=== PATIENT | female | born 1940 | race Caucasian/White ===

== ENCOUNTER 2018-09-06 17:55 | Inpatient (IN) | payer OTHER ==
[~2018-09-06] VITALS: Ht 160 cm; Wt 79.4 kg
[2018-09-06 18:00] VITALS: BP 179/127
--- NOTE | 2018-09-06 18:00 | NUR ---
PATIENT BIB BLS TO ER BED 4.
--- NOTE | 2018-09-06 18:03 | NUR ---
CALLED ROBERT FRANKLIN FOR ASSISTANCE ON THE IDENTITY OF THE PATIENT. DISPATCHER STATED OFFICER WILL CALL BACK.
--- NOTE | 2018-09-06 18:05 | NUR ---
PT BIB EMS FROM HOME FOR ALOC. PER EMS PT'S MARRIAGE THERAPIST WAS DOA AND WAS FOUND SITTING IN URINE APPROX >24 HOURS. LAST KNOWN WELL PER NEIGHBOR WAS 12PM YESTERDAY. PT HAS AUDIBLE WHEEZING AND RALES. SPEAKING INCOHERENTLY. +COUGH. PATIENT POSITIONED FOR COMFORT; HOB ELEVATED; BEDRAILS UP X2; BED DOWN. ER MD MADE AWARE OF PT STATUS.
--- NOTE | 2018-09-06 18:07 | NUR ---
OFFICER CATHLEEN CALLED BACK WITH NO AVAILABLE IDENTITY OF PATIENT AT THIS TIME. OFFICER WILL CALL BACK FOR ANY INFORMATION.
[2018-09-06 18:33] LABS: BASOPHILS % (AUTO) 0.1 % (0.0-2.0); HEMATOCRIT 42.3 % (36-48); HEMOGLOBIN 13.9 g/dL (12.0-16.0); LYMPHOCYTES # (AUTO) 0.6 K/uL (2.5-16.5); MEAN CORPUSCULAR HEMOGLOBIN 29 pg (27-31); MEAN CORPUSCULAR HGB CONC 33 g/dL (33-37); MEAN CORPUSCULAR VOLUME 88.9 fL (80-94); MONOCYTES # (AUTO) 1.7 K/uL (0.8-1.0); MONOCYTES % (AUTO) 8.2 % (1.7-9.3); NEUTROPHILS # (AUTO) 18.3 K/uL (1.8-7.7); NEUTROPHILS % (AUTO) 88.7 % (42.2-75.2); PLATELET COUNT (AUTO) 360 K/uL (140-450); RED BLOOD CELL COUNT(AUTO) 4.76 MIL/uL (4.20-5.40); RED CELL DISTRIBUTION WIDTH 14.2 % (11.6-13.7); WHITE BLOOD COUNT (AUTO) 20.6 K/uL (4.8-10.8)
--- NOTE | 2018-09-06 18:45 | NUR ---
OFFICER CATHLEEN CALLED FOR THE ID OF PATIENT. KAI JACKSON. [id number].
--- NOTE | 2018-09-06 18:55 | NUR ---
SPOKE TO JONATHAN #[id number] FROM [facility]. INTAKE REPORT # [id number].
--- NOTE | 2018-09-06 18:55 | NUR ---
OFFICER DESTIN CONNOLLY FROM [facility]. REPORT #[phone]
--- NOTE | 2018-09-06 19:04 | NUR ---
ASSUMED CARE OF PT FROM ELA HOLLOWAY
[2018-09-06 19:05] LABS: ANION GAP 23.9 (8-16); CHLORIDE 98 mmol/L (98-107); GLUCOSE 128 mg/dL (74-106); POTASSIUM 3.9 mmol/L (3.5-5.1); SODIUM SERUM 141 mmol/L (136-145)
[2018-09-06 19:06] LABS: ALBUMIN 3.7 g/dL (3.4-5.0); ASPARTATE AMINOTRANSFERASE 146 U/L (15-37); TOTAL BILIRUBIN 1.7 mg/dL (0.0-1.0)
[2018-09-06 19:11] LABS: CREATININE 4.1 mg/dL (0.6-1.3); UREA NITROGEN, BLOOD 73 mg/dL (7-18)
[2018-09-06] MEDS ORDERED: NACL 0.9% 2,000 ML IV ONE (19:20)
[2018-09-06] MEDS ORDERED: PIPERACILLIN/TAZOBACTAM 3.375 GM in DEXTROSE 5% 50 ML IV ONE (19:20)
[2018-09-06] MEDS ORDERED: PIPERACILLIN/TAZOBACTAM 3.375 GM VIAL IV ONE (19:35)
[2018-09-06 19:39] LABS: APPEARANCE,URINE SL CLOUDY (CLEAR); BILIRUBIN,URINE 2+ (NEGATIVE); BLOOD, URINE 2+ (NEGATIVE); COLOR,URINE YELLOW (YELLOW); LEUKOCYTE ESTERASE ,URINE NEGATIVE (NEGATIVE); NITRITE, URINE NEGATIVE (NEGATIVE); UGLUCOSE NEGATIVE (NEGATIVE)
[2018-09-06 19:51] LABS: CKMB RELATIVE INDEX 2.8 (0.0-2.5); CREATINE KINASE MB 97.9 ng/mL (0-3.6)
[2018-09-06 19:55] LABS: RBC,URINE 11-20 (MOD) /HPF (0-5)
[2018-09-06] MEDS ORDERED: ALBUTEROL SULFATE/IPRATROPIU 3 ML SOL IH ONE ×2 (20:15→20:55)
[2018-09-06] MEDS ORDERED: LEVOFLOXACIN 500 MG/D5W PREMIX 100 ML IV ONE (20:20)
[2018-09-06] MEDS ORDERED: NACL 0.9% 500 ML IV ONE (20:20)
[2018-09-06] MEDS ORDERED: DOCUSATE SODIUM 100 MG GELCAP PO PRN (20:50)
[2018-09-06] MEDS ORDERED: MORPHINE SULFATE 2 MG/ML SYR IVP PRN (20:50)
[2018-09-06] MEDS ORDERED: LORazepam 2 MG/ML VIAL IM/IVP PRN (20:50)
[2018-09-06] MEDS ORDERED: HYDROcodone/APAP 5/325 MG 1 TAB TAB PO PRN (20:50)
[2018-09-06] MEDS ORDERED: ONDANSETRON 4 MG/2 ML VIAL IM/IVP PRN (20:50)
[2018-09-06] MEDS ORDERED: ACETAMINOPHEN 325 MG TAB PO PRN (20:50)
--- NOTE | 2018-09-06 20:50 | NUR ---
PT RESTING, VSS AT THIS TIME. RT CALLED FOR BREATHING TREATMENT.
--- NOTE | 2018-09-06 20:57 | NUR ---
RT AT BEDSIDE
[2018-09-06 21:21] LABS: BARBITURATE, URINE NEG. ng/ml (NEG <=200); BENZODIAZEPINE, URINE NEG. ng/mL (NEG <=200); CANNABINOID, URINE NEG. ng/mL (NEG <=50); COCAINE, URINE NEG. ng/mL (NEG <=300); OPIATE, URINE NEG. ng/mL (NEG <=2000); PHENCYCLIDINE SCREEN,URINE NEG. ng/mL (NEG <=25)
[2018-09-06 21:25] LABS: MAGNESIUM 2.7 mg/dL (1.8-2.4); PHOSPHORUS 8.2 mg/dL (2.5-4.9); THYROID STIMULATING HORMONE 1.7 uIU/mL (0.34-3.74)
--- NOTE | 2018-09-06 22:00 | NUR ---
Patient noted to have existing wounds upon arrival to ER. Photos taken of wound and placed in chart. Wound covered with dressing. Physician informed.
[2018-09-06 22:19] VITALS: BP 130/70
--- NOTE | 2018-09-06 22:20 | NUR ---
RECEIVED REPORT FROM GATEKEEPER RENU. PT ON NC 3L. O2 SAT 94% HR 77 B/P 130/70 RR 22. LUNG SOUNDS WHEEZING. RT NOTIFIED. PT HAS REDNESS ON BUTTOCKS, BLISTERS ON MID BACK, AND A SKIN TEAR ON BACK. PT WITH MX BRUISE ON ARMS. PT WITH CASTELLANOS CATH PLACED IN ER. PT NONVERBAL. OPEN ONLY R EYE. IV ON RAC 20 G NS BOLUS INFUSING. PT EDEMA ON BILATERAL LEGS. ALL SAFETY MEASURES ARE IN PLACE. FALL PRECAUTION IN PLACE.
--- NOTE | 2018-09-06 22:20 | NUR ---
Patient will be admitted to care of DR AMEZQUITA. Admited to TELE. Will go to room 112-A. Belongings list completed. Report to ELA GOMEZ.
--- NOTE | 2018-09-06 22:40 | NUR ---
RT IS AT BEDSIDE. WILL CONTINUE TO MONITOR.
[2018-09-06] MEDS ORDERED: CALCIUM ACETATE 667 MG TAB PO SCH (23:00)
[2018-09-06] MEDS ORDERED: ALBUTEROL SULFATE/IPRATROPIU 3 ML SOL IH PRN (23:10)
[2018-09-06] MEDS ORDERED: SKINTEGRITY HYDROGEL TP PRN (23:25)
[2018-09-06] MEDS: DEXT 5% / NACL 0.45% 1,000 ML IV SCH (23:28)
[2018-09-07] VITALS: BP 131/54
[2018-09-07] MEDS ORDERED: methylPREDNISolone SS 125 MG/2 ML VIAL IVP ONE
--- NOTE | 2018-09-07 | NUR ---
PT STABLE O2 SAT 97% ON 4L NC. B/P 131/54 HR 66. PT REMAINS NONVERBAL. BED ALARM ON. WILL CONTINUE TO MONITOR
--- NOTE | 2018-09-07 | NUR ---
PT REPOSITIONED, NEW ORDERS FOR FLUIDS D5 AND N/S AT 100MLS/HR. NO S/S OF PAIN OR DISTRESS NOTED. V/S FOLLOWS T 97.6 P 74 R 18 B/P 153/54 02 96%WITH 3LITERS VIA N/C.
--- NOTE | 2018-09-07 02:00 | NUR ---
PT IS SLEEPING COMFORTABLY IN BED. NO S/S OF DISTRESS. SAFETY MEASURES ARE IN PLACE. WILL CONTINUE TO MONITOR.
--- NOTE | 2018-09-07 04:00 | NUR ---
VITAL SIGNS ARE WITHIN NORMAL LIMITS. ALL NEEDS MET AT THIS TIME. BED ALARM ON AND LOWEST POSITION.
[2018-09-07 04:02] VITALS: BP 131/55
[2018-09-07] MEDS: methylPREDNISolone SS 125 MG/2 ML VIAL IVP SCH ×3 (04:18→22:21)
--- NOTE | 2018-09-07 06:00 | NUR ---
PT SLEEPING COMFORTABLY IN BED. RESPIRATIONS ARE EQUAL AND UNLABORED. SAFETY MEASURES ARE IN PLACE. WILL CONTINUE TO MONITOR.
--- NOTE | 2018-09-07 06:32 | NUR ---
PATIENT HAS BEEN SCREENED AND CATEGORIZED HIGH NUTRITION RISK. PATIENT WILL BE SEEN WITHIN 1-2 DAYS OF ADMISSION. 09/07/18-09/08/18 XIMENA COLON MS, RDN
[2018-09-07 06:51] LABS: BASOPHILS % (AUTO) 0.1 % (0.0-2.0); HEMATOCRIT 32.1 % (36-48); HEMOGLOBIN 10.4 g/dL (12.0-16.0); LYMPHOCYTES # (AUTO) 0.3 K/uL (2.5-16.5); MEAN CORPUSCULAR HEMOGLOBIN 29 pg (27-31); MEAN CORPUSCULAR HGB CONC 32 g/dL (33-37); MEAN CORPUSCULAR VOLUME 88.1 fL (80-94); MONOCYTES # (AUTO) 0.4 K/uL (0.8-1.0); MONOCYTES % (AUTO) 3.4 % (1.7-9.3); NEUTROPHILS # (AUTO) 12.1 K/uL (1.8-7.7); PLATELET COUNT (AUTO) 238 K/uL (140-450); RED BLOOD CELL COUNT(AUTO) 3.65 MIL/uL (4.20-5.40); RED CELL DISTRIBUTION WIDTH 14.2 % (11.6-13.7); WHITE BLOOD COUNT (AUTO) 12.9 K/uL (4.8-10.8)
[2018-09-07] MEDS: ALBUTEROL SULFATE/IPRATROPIU 3 ML SOL IH SCH ×3 (07:00→19:00)
[2018-09-07 07:15] LABS: ANION GAP 18.4 (8-16); CARBON DIOXIDE 20.1 mmol/L (21-32); CHLORIDE 105 mmol/L (98-107); CREATININE 3.6 mg/dL (0.6-1.3); GLUCOSE 239 mg/dL (74-106); POTASSIUM 3.5 mmol/L (3.5-5.1); SODIUM SERUM 140 mmol/L (136-145)
[2018-09-07 07:17] LABS: UREA NITROGEN, BLOOD 76 mg/dL (7-18)
--- NOTE | 2018-09-07 07:22 | NUR ---
GAVE BEDSIDE REPORT TO BUSTER MAHMOOD. PT ENDORSED IN STABLE CONDITION. SAFETY MEASURES ARE IN PLACE.
--- NOTE | 2018-09-07 07:23 | NUR ---
RECEIVED REPORT FROM LIQUID SUGAR MELTER NURSE. PATIENT LYING DOWN IN BED SLEEPING, AROUSABLE TO TOUCH, LOCALIZED PAIN. AAOX1, DROWSY AT THIS TIME. HAS BACK SKIN BLISTERS, SKIN TEARS AND PERINEAL REDNESS NOTED. RESPIRATIONS EVEN, UNLABORED, ON O2 4L/MIN VIA NC WITH O2 SAT AT 97%, ABDOMEN SOFT. IV SITE INTACT, PATENT, AND INFUSING IVF PER MD ORDERS. REVIEWED PLAN OF CARE WITH PATIENT. PATIENT VERBALIZED UNDERSTANDING. SAFETY MEASURES IN PLACE, CALL LIGHT WITHIN REACH. WILL CONTINUE TO MONITOR.
[2018-09-07] MEDS ORDERED: ALBUTEROL SULFATE/IPRATROPIU 3 ML SOL IH PRN (07:25)
[2018-09-07 07:35] LABS: CHOL/HDL RATIO 2.3 (1-4.5)
[2018-09-07 07:36] LABS: MAGNESIUM 2.1 mg/dL (1.8-2.4); PHOSPHORUS 6.4 mg/dL (2.5-4.9)
[2018-09-07 08:00] VITALS: BP 113/87
[2018-09-07] MEDS: CALCIUM ACETATE 667 MG TAB PO SCH (08:00)
[2018-09-07 08:18] LABS: LYMPHOCYTES % (AUTO) 2.7 % (20.5-51.1); NEUTROPHILS % (AUTO) 93.8 % (42.2-75.2)
[2018-09-07] MEDS ORDERED: FUROSEMIDE 40 MG/4 ML VIAL IVP SCH (08:30)
[2018-09-07] MEDS ORDERED: levETIRAcetam 1,000 MG in NACL 0.9% 100 ML IV SCH (09:00)
[2018-09-07] MEDS: DEXT 5% / NACL 0.45% 1,000 ML IV SCH ×2 (09:02→19:02)
--- NOTE | 2018-09-07 09:09 | NUR ---
PATIENT LYING DOWN IN BED SLEEPING, AROUSABLE BY VOICE AND TOUCH. CONFUSED. SCHEDULED MEDICATIONS DUE GIVEN. NO NGTUBE INSERTED AT THIS TIME PER DR. LYNNE VERBAL ORDERS FOR OK TO HOLD OFF FOR NOW DUE TO PATIENT AROUSABLE AND ABLE TO RESPOND TO QUESTIONS, HOWEVER, IS DROWSY. PATIENT MAY GET AGITATED AND PULL OUT NGTUBE ONCE PLACED IN AND PATIENT CURRENTLY ONLY HAS 1 ORAL MEDICATION AT THIS TIME. WILL CONTINUE TO MONITOR.
--- NOTE | 2018-09-07 09:46 | NUR ---
09/07/18 RD INITIAL ASSESSMENT COMPLETED PLEASE REFER TO NUTRITION ASSESSMENT UNDER CARE ACTIVITY FOR ESTIMATED NUTRITIONAL NEEDS. RD RECOMMENDATIONS: 1. CONTINUE NPO MEDICALLY APPROPRIATE. 2. IF/WHEN MEDICALLY APPROPRIATE, CONSIDER SWALLOW EVALUATION. 3. IF/WHEN MEDICALLY APPROPRORIATE & PT ABLE TO TOLERATE ORAL DIET, CONSIDER INITIATING REGULAR DIET IN DIET TEXTURES PER LOAN INTERVIEWER RECOMMENDATIONS. 4. IF PT UNABLE TO TOLERATE PO DIET, CONSIDER ALTERNATE ROUTE OF NUTRITION. CONSULT RDN PRN. 5. RD WILL F/U 2-3 DAYS; HIGH RISK. XIMENA COLON MS, RDN
[2018-09-07] MEDS: SKINTEGRITY HYDROGEL TP SCH (11:02)
--- NOTE | 2018-09-07 11:02 | NUR ---
PATIENT LYING DOWN IN BED. NO DISTRESS NOTED. DROWSY. SCHEDULED MEDICATIONS DUE GIVEN. RADIOLOGIST AT BEDSIDE TO PERFORM CHEST XRAY. WILL CONTINUE TO MONITOR.
[2018-09-07] MEDS ORDERED: LORazepam 2 MG/ML VIAL IM/IVP PRN (11:25)
[2018-09-07 12:00] VITALS: BP 109/55
[2018-09-07] MEDS ORDERED: ALBUTEROL SULFATE/IPRATROPIU 3 ML SOL IH SCH (12:00)
--- NOTE | 2018-09-07 12:54 | NUR ---
PATIENT LYING DOWN IN BED, LETHARGIC. RESPONDS TO PAIN STIMULATION. SCHEDULED MEDICATION DUE GIVEN. ABG TAKEN BY RT AT BEDSIDE. WILL CONTINUE TO MONITOR.
--- NOTE | 2018-09-07 13:10 | NUR ---
SPOKE TO DR. LYNNE AND REGARDING ABG RESULTS
--- NOTE | 2018-09-07 14:30 | NUR ---
ASSISTED COMMERCIAL PRINT SALESMAN IN CLEANING AND REPOSITIONING PATIENT. WILL CONTINUE TO MONITOR.
[2018-09-07 16:00] VITALS: BP 97/57
--- NOTE | 2018-09-07 17:30 | NUR ---
PATIENT LYING DOWN IN BED SLEEPING. CONDITION UNCHANGED. WILL CONTINUE TO MONITOR.
--- NOTE | 2018-09-07 19:29 | NUR ---
REPORT GIVEN BY BUSTER MAHMOOD REPAIRER ENGINE PRODUCTION NURSE, AT BEDSIDE FOR CONTINUITY OF CARE, PT IN STABLE CONDITION.
--- NOTE | 2018-09-07 19:29 | NUR ---
GAVE REPORT TO COREMAKER APPRENTICE NURSE FOR CONTINUITY OF CARE. PATIENT IN STABLE CONDITION
--- NOTE | 2018-09-07 20:00 | NUR ---
PT IN BED ALL FALLS PRECAUTIONS IN PLACE. PT AOX1, SHE WILL OPEN EYES SPONTANEOUSLY , KNOWS WHO SHE IS BUT IS CONFUSED. PT HAS O2 VIA 3LITERS N/C AND IV SITE ON R AC 20 RUNNING D5 AND 1/2 NS.V/S FOLLOWS T 97.9 P 64 R 18 B/P 122/60 02 94% .PT TURNED AND CHANGED AND REPOSITIONED.
--- NOTE | 2018-09-07 21:00 | NUR ---
PT GIVEN DUE MEDS OF KEPPRA, HEPARIN AND SOLUMEDROL. NO S/S OF PAIN OR DISTRESS. PT NOTED WITH INTERMITTED COUGH THATS, NON PRODUCTIVE. PT LUNG SOUNDS CLEAR BUT SLIGHTLY DIMINISHED WITH EXPIRATION. NO S/S OF PAIN OR DISTRESS NOTED. PT AWAKE AND REORIENTED.
[2018-09-07] MEDS: levETIRAcetam 500 MG in NACL 0.9% 100 ML IV SCH (22:26)
[2018-09-07] MEDS ORDERED: MULT-1869 PO (22:39)
[2018-09-07] MEDS ORDERED: PANT40EC PO (22:40)
[2018-09-07] MEDS ORDERED: POTA10TE30 PO (22:40)
[2018-09-07] MEDS ORDERED: VITD1000 PO (22:40)
[2018-09-07] MEDS ORDERED: DOCU-299 PO (22:40)
[2018-09-07] MEDS: DEXT 5% /NACL 0.9% 1,000 ML IV SCH (22:50)
[2018-09-07] MEDS ORDERED: DOCUSATE SODIUM 100 MG GELCAP PO PRN (22:50)
[2018-09-08 03:05] VITALS: BP 117/41
--- NOTE | 2018-09-08 04:00 | NUR ---
PT TURNED , CHANGED AND REPOSITIONED. BED LOW, CALL DIAL IN REACH AND ALL FALLS PRECAUTIONS IN PLACE. V/S FOLLOWS T 97.9 P 62 R 18 B/P 147/57 02 97% WITH 3 LITERS VIA N/C.
--- NOTE | 2018-09-08 04:30 | NUR ---
PATIENT SLEEPING. NO RESPIRATORY DISTRESS NOTED. TITRATED OXYGEN TO 2L. PULSE OX 96%. HEART RATE 63. WILL CONTINUE TO MONITOR.
[2018-09-08] MEDS: methylPREDNISolone SS 40 MG/ML VIAL IVP SCH ×3 (05:00→21:42)
[2018-09-08] MEDS: ALBUTEROL SULFATE/IPRATROPIU 3 ML SOL IH SCH ×3 (06:51→18:58)
[2018-09-08 07:08] LABS: BASOPHILS % (AUTO) 0.1 % (0.0-2.0); HEMATOCRIT 34.3 % (36-48); LYMPHOCYTES # (AUTO) 0.5 K/uL (2.5-16.5); LYMPHOCYTES % (AUTO) 3.7 % (20.5-51.1); MEAN CORPUSCULAR HEMOGLOBIN 28 pg (27-31); MEAN CORPUSCULAR HGB CONC 32 g/dL (33-37); MEAN CORPUSCULAR VOLUME 87.9 fL (80-94); MONOCYTES # (AUTO) 0.5 K/uL (0.8-1.0); MONOCYTES % (AUTO) 4.1 % (1.7-9.3); NEUTROPHILS # (AUTO) 11.5 K/uL (1.8-7.7); NEUTROPHILS % (AUTO) 92.1 % (42.2-75.2); PLATELET COUNT (AUTO) 257 K/uL (140-450); RED CELL DISTRIBUTION WIDTH 14.5 % (11.6-13.7); WHITE BLOOD COUNT (AUTO) 12.5 K/uL (4.8-10.8)
[2018-09-08 07:20] LABS: ANION GAP 17.9 (8-16); CARBON DIOXIDE 20.8 mmol/L (21-32); CHLORIDE 109 mmol/L (98-107); CREATININE 3.3 mg/dL (0.6-1.3); GLUCOSE 177 mg/dL (74-106); POTASSIUM 3.7 mmol/L (3.5-5.1); SODIUM SERUM 144 mmol/L (136-145)
[2018-09-08 07:23] LABS: MAGNESIUM 2.4 mg/dL (1.8-2.4); PHOSPHORUS 5.6 mg/dL (2.5-4.9)
--- NOTE | 2018-09-08 07:25 | NUR ---
RECEIVED REPORT FROM HEALTH INFORMATICS INSTRUCTOR NURSE. PATIENT LYING DOWN IN BED COMFORTABLY, NO DISTRESS NOTED. RESPIRATIONS EVEN, UNLABORED, ON O2 3L/MIN VIA NC. AAOX1, CALM, COOPERATIVE, SKIN COLOR APPROPRIATE TO ETHNICITY, WARM TO TOUCH. HAS BACK SKIN TEARS, DRESSING IS DRY AND INTACT. CASTELLANOS CATHETER IN PLACE, DRAINING YELLOW URINE. REVIEWED PLAN OF CARE WITH PATIENT. PATIENT VERBALIZED UNDERSTANDING. SAFETY MEASURES IN PLACE, CALL LIGHT WITHIN REACH. WILL CONTINUE TO MONITOR.
[2018-09-08 07:30] LABS: UREA NITROGEN, BLOOD 75 mg/dL (7-18)
[2018-09-08 08:00] VITALS: BP 148/68
[2018-09-08] MEDS: CALCIUM ACETATE 667 MG TAB PO SCH (08:00)
[2018-09-08 08:28] LABS: CKMB RELATIVE INDEX 0.7 (0.0-2.5); CREATINE KINASE MB 24.6 ng/mL (0-3.6)
[2018-09-08] MEDS ORDERED: POTASSIUM CHLORIDE 10 MEQ TABER PO SCH (09:00)
[2018-09-08] MEDS ORDERED: MULTIVITAMIN/MINERALS 1 TAB PO SCH (09:00)
[2018-09-08] MEDS ORDERED: DOCUSATE SODIUM 100 MG GELCAP PO SCH (09:00)
[2018-09-08] MEDS ORDERED: PANTOPRAZOLE 40 MG TABEC PO SCH (09:00)
[2018-09-08] MEDS ORDERED: CHOLECALCIFEROL 1,000 IU TAB PO SCH (09:00)
[2018-09-08] MEDS: SKINTEGRITY HYDROGEL TP SCH (10:07)
[2018-09-08] MEDS: DEXT 5% /NACL 0.9% 1,000 ML IV SCH ×2 (10:08→19:01)
[2018-09-08] MEDS: levETIRAcetam 500 MG in NACL 0.9% 100 ML IV SCH ×2 (10:08→21:42)
--- NOTE | 2018-09-08 10:30 | NUR ---
ASSISTED GEOLOGICAL ENGINEERING TEACHER IN CLEANING AND REPOSITIONING PATIENT. SCHEDULED MEDICATIONS DUE GIVEN. PO MEDICATION NOT GIVEN AT THIS TIME AWAITING FOR ST EVAL PER MD ORDERS. WILL CONTINUE TO MONITOR.
--- NOTE | 2018-09-08 11:15 | NUR ---
COOK FRY AT BEDSIDE TO PERFORM EEG. WILL CONTINUE TO MONITOR.
--- NOTE | 2018-09-08 11:30 | NUR ---
PATIENT'S BROTHER CALLED REGARDING STATUS ON PATIENT. CONTACT NUMBER FOR PATIENT IS VIKASH RAMOS (BROTHER) [phone], AND BUSTER RAMOS (BROTHER) [phone]. NOTIFIED WILL CONTINUE TO MONITOR.
--- NOTE | 2018-09-08 11:48 | NUR ---
WOUND CARE EVALUATION NOTE: REASON FOR EVALUATION: LOW IVAN SCALE AND MID BACK WOUNDS SKIN ASSESSMENT DONE WITH THIS 78 Y/O FEMALE PT ADMITTED FROM HOME TO [facility] WITH INITIAL DX ALOC. PT. ADMITTED WITH MULTIPLE BLISTERS AND ONE OPEN BLISTERS TO MID BACK AREA. PT. IS CONFUSED AT TIME OF SKIN ASSESSMENT, UNABLE TO RECALL WHAT HAPPENED TO THE BLISTERS AND WHY SHE IS AT HOSPITAL, UNABLE TO ANSWER IF THERE�S ANY PAST MEDICAL HISTORY. LABS ARE WBC 8.812.5, H/H 11.0/34.3, GLUCOSE 117 AND ALBUMIN 3.7. PT IS AWAKE. SKIN IS WARM AND DRY, BLE NO HAIR GROWTH, NO EDEMA. DORSAL PEDAL PULSES PRESENT AND NORMAL. CAPILLARY REFILLED < 2 SEC. X 10 TOES. INCONTINENT OF BOWEL AND BLADDER. PLAN OF CARE DISCUSSED WITH PRIMARY RN. INTEGUMENTARY: -MULTIPLE ECCHYMOSIS TO UPPER EXTREMITIES, SKIN INTACT. -PRESSURE INJURIES POSTERIOR THORACIC SPINAL REGION OPEN BLISTERS MID BACK 2X3X0.1 CM AND LEFT MID BACK 2X1X0.1CM, WOUND BEDS ARE RED, MOIST, NO ODOR, 2 WOUNDS ERIKA-WOUND SKIN INTACT SURROUNDING REDNESS MERGED WITH 4X6CM -INCONTINENT ASSOCIATE DERMATITIS (IAD) TO: REDNESS B/L INNER BUTTOCKS EXTENDED TO PERINEUM WITH A SKIN EROSION TO RIGHT INNER BUTTOCK 1X0.5X0.1 CM, WOUND BED IS RED AND DRY, NO ODOR -BLANCHABLE REDNESS TO SACROCOCCYX, 2X2CM RECOMMENDATIONS: -KEEP SKIN DRY AND CLEAN AT ALL TIMES, PLEASE CHECK Q2H AND PRN FOR INCONTINENCY OF BOWEL AND BLADDER. -APPLY Z-GUARD TO R/L INNER BUTTOCKS TO PERINEUM BIDWC AND PRN IF SOILING - CLEANSE THORACIC SPINAL REGION OPEN BLISTERS WITH WOUND CLEANSING SOLUTION, PAT DRY AND APPLY HYDRAGEL AND COVER WITH DRY DRESSING QD AND PRN IF SOILING -APPLY FORM DRESSING TO SACROCOCCY Q7 DAYS AND PRN IF SOILING PREVENTION -OFFLOAD BILATERAL HEELS BY PLACING PILLOWS UNDER CALVES UNLESS OTHERWISE CONTRAINDICATED -PRESSURE REDISTRIBUTION SURFACE THERAPY -TURN AND REPOSITION Q2H, OFFLOAD MID BACK, SACRALCOCCYX AND BUTTOCKS BY TURNING RIGHT AND LEFT -CONTINUE TO FOLLOW RD RECOMMENDATIONS ALL ABOVE RECOMMENDATIONS DISCUSSED WITH PRIMARY RN. WILL FOLLOW UP PT Q7-10 DAYS. PLEASE CONTACT WOUND CARE NURSE FOR ANY QUESTION AND CHANGE OF WOUND CONDITION. Addendum: 09/08/18 at 1227 by Margy Argueta RN (Grace) PRESSURE INJURIES STAGE 2 TO THORACIC SPINAL REGION.
[2018-09-08 12:00] VITALS: BP 150/71
--- NOTE | 2018-09-08 13:25 | NUR ---
PATIENT LYING DOWN IN BED SLEEPING, AROUSABLE BY VOICE. NO DISTRESS NOTED. CONDITION UNCHANGED. SCHEDULED MEDICATIONS DUE GIVEN. WILL CONTINUE TO MONITOR.
--- NOTE | 2018-09-08 15:10 | NUR ---
PATIENT REFUSES ECHOCARDIOGRAM DONE AT THIS TIME DESPITE EXPLAINING PROCEDURE TO PATIENT. ECHOCARDIOGRAM TECH TO NOTIFY MD OF PATIENT'S REFUSAL.
[2018-09-08 16:00] VITALS: BP 169/73
--- NOTE | 2018-09-08 16:30 | NUR ---
ASSISTED REMOTE OPERATIONS PRODUCER IN CLEANING AND REPOSITIONING PATIENT. NO DISTRESS NOTED. CONDITION UNCHANGED. WILL CONTINUE TO MONITOR.
[2018-09-08] MEDS: hydrALAZINE 20 MG/ML VIAL IVP PRN (17:16)
--- NOTE | 2018-09-08 17:50 | NUR ---
SPEECH THERAPIST AT BEDSIDE PERFORMING SWALLOW EVALUATION. WILL CONTINUE TO MONITOR.
--- NOTE | 2018-09-08 18:12 | NUR ---
* ST NOTE * Pt seen at bedside. Pt asleep upon entering room. Upon awakening, pt alert and cooperative, reporting no c/o pain at this time. Bedside dysphagia and oral mechanism exams completed. See evaluation report for further details. Pt tolerating 5/5 alternating PO trials of regular solid saltine crackers as well as 6/6 alternating PO trials of thin liquid apple juice via a straw, all w/o s/s of aspiration or choking. Nsg and pt education completed re: aspiration precautions and safe swallow compensatory strategies pt and caregivers/nsg could utilize to aid pt w/swallow function, w/pt demonstrating follow through as trained requiring minimal verbal and tactile cues, and nsg verbalizing understanding and agreement w/clinician's recommendations. Although pt can tolerate regular solids, pt presenting with AMS at this time, only oriented x2 currently. Thus it is recommended pt's PO diet consistency be modified to mechanical soft textures w/thin liquids for all meals, w/aspiration precautions in place. No further ST follow up recommended at this time. Pt and caregiver/Nsg education completed re: results of evaluation; benefits of abiding by aspiration precautions & recommended PO diet consistency; and prognosis for improvement; with pt and caregiver/Nsg verbalizing understanding and agreement w/clinician's recommendations. Recommend: - PO DIET CONSISTENCY OF MECHANICAL SOFT TEXTURES W/THIN LIQUIDS for all meals - WHOLE PILL PO MEDICATION ADMINISTRATION OR CRUSHED IN MECHANICAL SOFT OR PUREE TEXTURES - Maintain ASPIRATION PRECAUTIONS DURING PT'S PO INTAKE - Pt can self-feed - CUE/REMIND PT PRIOR TO PO INTAKE TO SIT UP AT 80-90 DEGREE ANGLE DURING PO INTAKE; EAT/DRINK SLOWLY; ALTERNATE BTWN SOLIDS & LIQUIDS; AND TAKE SMALL BITES/SIPS No further ST follow up recommended at this time. NOMS Level 2 Time In/Out 17:15 - 17:45
--- NOTE | 2018-09-08 19:22 | NUR ---
GAVE REPORT TO ALUM PLANT SUPERVISOR NURSE FOR CONTINUITY OF CARE. PATIENT IN STABLE CONDITION.
--- NOTE | 2018-09-08 19:25 | NUR ---
RECEIVED FROM AM RN IN BED SLEEPING. EASY TO WAKE UP WHEN REPORT WAS STARTED. ABLE TO VERBALIZE SIMPLE NEEDS. ASKED IF WE CAN PULL CURTAIN TO WHERE SHE CAN NOT SEE PEOPLE PASSING BY . STATED SHE IS NOT GOING ANYWHERE. EXPLAINED TO HER WE WILL STILL PUT HER BED ALARM ON. "OK" AFEBRILE. VS WNL AT THIS TIME. PT. TURNED BY CNAS TO LEFT SIDE AND WITH PILLOW SUPPORT IN PLACE TO [RESSURE AREAS.
[2018-09-08 20:13] VITALS: BP 150/72
--- NOTE | 2018-09-08 21:50 | NUR ---
PT.TURNED TO SIDE BY CNAS AND KEPT CLEAN AND DRY. COMFORTABLE. NOTED COUGHING SLIGHTLY. CONFUSED . CALLING FOR SOMEONE AND GOES BACK TO SLEEP . BED ALARM ON. CALL LIGHT WITH IN REACH. NO RESTLESSNESS NOTED AT THIS TIME. CASTELLANOS CATHER IN PLACE AND DRAINING WELL WITH YELLOW URINE. NEEDS WILL BE ANTICIPATED AND MET. ON TELEMETRY MONITORING.
[2018-09-08 23:12] VITALS: BP 158/66
--- NOTE | 2018-09-08 23:15 | NUR ---
PT. SLEEPING. WITH 02 AT 2LPM/NC. 02 SAT AT 94 TO 95 % RANGE AT THIS TIME. BED ALARM ON . TURNED TO SIDES Q 2H. PILLOW SUPPORT TO PRESSURE AREAS IN PLACE.
--- NOTE | 2018-09-09 03:51 | NUR ---
SLEEPING. TELEMETRY MONITORING. NEEDS ANTICIPATED. TURNED TO SIDES BY CNAS Q 2H. PILLOW SUPPORT TO PRESSURE AREAS . PT. ABLE TO VERBALIZE SIMPLE NEEDS IN COMORAN. WITH FORGETFULNESS AT TIMES WHEN AWAKE. IVF SITE TO RIGHT RAC#20 INTACT AND WITH GOOD BLOOD RETURN.
[2018-09-09] MEDS: DEXT 5% /NACL 0.9% 1,000 ML IV SCH (04:09)
[2018-09-09 04:11] VITALS: BP 156/69
--- NOTE | 2018-09-09 05:57 | NUR ---
AM HYGIENE RENDERED BY CNAS. WAKES UP WHEN TOUCHED. CALL LIGHT WITH IN REACH. TURNED TO SIDES Q2H WITH PILLOW SUPPORT TO PRESSURE AREAS. ENCOURAGED TO STAY ON SIDE TURNED. CASTELLANOS CATHETER IN PLACE AND DRAINING WELL WITH YELLOW URINE.
[2018-09-09 07:13] LABS: BASOPHILS # (AUTO) 0.1 K/uL (0.00-0.22); BASOPHILS % (AUTO) 0.6 % (0.0-2.0); HEMATOCRIT 31.8 % (36-48); HEMOGLOBIN 10.4 g/dL (12.0-16.0); LYMPHOCYTES # (AUTO) 0.6 K/uL (2.5-16.5); LYMPHOCYTES % (AUTO) 5.3 % (20.5-51.1); MEAN CORPUSCULAR HEMOGLOBIN 29 pg (27-31); MEAN CORPUSCULAR HGB CONC 33 g/dL (33-37); MEAN CORPUSCULAR VOLUME 88.6 fL (80-94); MONOCYTES # (AUTO) 0.7 K/uL (0.8-1.0); MONOCYTES % (AUTO) 6.7 % (1.7-9.3); NEUTROPHILS % (AUTO) 87.4 % (42.2-75.2); PLATELET COUNT (AUTO) 242 K/uL (140-450); RED BLOOD CELL COUNT(AUTO) 3.59 MIL/uL (4.20-5.40); RED CELL DISTRIBUTION WIDTH 14.9 % (11.6-13.7); WHITE BLOOD COUNT (AUTO) 10.4 K/uL (4.8-10.8)
--- NOTE | 2018-09-09 07:15 | NUR ---
RECEIVED BEDSIDE REPORT FROM PARTY PLAN SALES UNIT ADVISOR NURSE.PT IS AOX1 TO NAME, DISORIENTED TO TIME, PLACE, AND DATE. DENIES PAIN. ABLE TO VERBALIZED NEEDS AND FOLLOW COMMANDS.RESPIRATION IS EVEN AND UNLABORED, NC 2L/MIN. COUGH A FEW TIME, NON PRODUCTIVE. IV R AC, PATENT AND ASYMPTOMATIC, INFUSING PER MD ORDER. BLISTER ON BACK AND REDNESS AROUND ERIKA AREA, OTHERWISE SKIN INTACT. CASTELLANOS IN PLACE AND DRAINING NIKHIL URINE.PT IS RESTING ON BED AT THIS TIME. AMBULATE WITH ASSIST. DISCUSSED PLAN OF CARE FOR TODAY, AND PT VERBALIZED "OK". FALL PROTOCOL INITIALED. SAFETY MEASURES IN PLACE. BED IN LOW POSITION, AND CALL LIGHT WITHIN REACH.
[2018-09-09] MEDS: ALBUTEROL SULFATE/IPRATROPIU 3 ML SOL IH SCH ×3 (07:22→19:03)
[2018-09-09 07:29] LABS: ANION GAP 14.5 (8-16); CARBON DIOXIDE 21.2 mmol/L (21-32); CHLORIDE 117 mmol/L (98-107); CREATININE 2.1 mg/dL (0.6-1.3); GLUCOSE 188 mg/dL (74-106); POTASSIUM 3.7 mmol/L (3.5-5.1); SODIUM SERUM 149 mmol/L (136-145)
--- NOTE | 2018-09-09 07:53 | NUR ---
RECEIVED A CRITICAL LAB VALUE FOR BUN 62. NOTIFIED.
[2018-09-09 07:59] LABS: UREA NITROGEN, BLOOD 62 mg/dL (7-18)
[2018-09-09 08:00] VITALS: BP 181/64
[2018-09-09] MEDS: methylPREDNISolone SS 40 MG/ML VIAL IVP SCH (08:44)
[2018-09-09] MEDS: DEXTROSE 5% 1,000 ML IV SCH (08:54)
[2018-09-09] MEDS: SKINTEGRITY HYDROGEL TP SCH (08:54)
--- NOTE | 2018-09-09 08:56 | NUR ---
ADMINISTERED MEDS PER MD ORDER. PT TOLERATED WELL. NO SIGNS OF DISTRESS NOTED.
[2018-09-09] MEDS ORDERED: hydrALAZINE 10 MG TAB PO SCH ×2 (09:00→21:00)
--- NOTE | 2018-09-09 09:05 | NUR ---
IS TALKING AND ASSESSING THE PT.
[2018-09-09] MEDS: levETIRAcetam 500 MG in NACL 0.9% 100 ML IV SCH ×2 (09:07→20:38)
--- NOTE | 2018-09-09 10:45 | NUR ---
REPOSITIONED PT TO HER LEFT LATERAL SOFTWARE DEVELOPMENT TEST ENGINEER AND USED PILLOWS TO OFF LOAD PRESSURE FROM BACK AND LEGS. PT TOLERATED WELL. NO SIGNS OF DISTRESS NOTED.
[2018-09-09 12:00] VITALS: BP 198/73
--- NOTE | 2018-09-09 12:00 | NUR ---
IV INFILTRATED, D/C IV, CANNULA INTACT AND COMPLETED. NO BLEEDING AT INSERTION SITE. STARTED NEW IV ON L AC 20G, ASYMPTOMATIC AND PATENT, INFUSING PER MD ORDER. PT TOLERATED WELL.
[2018-09-09] MEDS: hydrALAZINE 20 MG/ML VIAL IVP PRN ×2 (12:34→13:54)
--- NOTE | 2018-09-09 12:35 | NUR ---
VITAL SIGNS TAKEN; BP 198/73, PULSE 81, SPO2 96, RR 20, TEMP 96.9. DENIES PAIN. MD NOTIFIED OF HIGH BP. ADMINISTERED PRN HYDRALAZINE PER MD ORDER. NO SIGNS OF DISTRESS NOTED.
--- NOTE | 2018-09-09 13:08 | NUR ---
RECEIVED A CALL FROM PT'S BROTHER VIKASH GarciaMaria Victoria SUH SAID HE WILL COME TO VISIT THE PT AROUND 10 AM TOMORROW AND WANTS TO TALK TO A DR. MAKE NOTE OF IT ON HAND OFF REPORT.
[2018-09-09] MEDS ORDERED: FUROSEMIDE 20 MG/2 ML VIAL IVP SCH (13:15)
--- NOTE | 2018-09-09 13:22 | NUR ---
Pediatric Pathologist Note: I was informed by patient's brother Adryan Daoconstanza requested to meet with AIRPORT PLANNER to discuss patient's tentative discharge plan. I called and spoke with Adryan, he stated can come tomorrow around 10:30am and meet with me. He also reported his brother Richard Llanos will also be attending meeting as well.
--- NOTE | 2018-09-09 13:34 | NUR ---
REPOSITIONED PT AND USED PILLOWS TO OFF LOAD THE PRESSURE FROM BACK AND LEGS AND ELBOWS. PT TOLERATED WELL.
--- NOTE | 2018-09-09 14:27 | NUR ---
09/09/18 RD FOLLOW UP COMPLETED PLEASE REFER TO NUTRITION ASSESSMENT UNDER CARE ACTIVITY FOR ESTIMATED NUTRITIONAL NEEDS. RD RECOMMENDATIONS: 1. CONTINUE [facility] SOFT DIET TOLERATED 2. RECOMMEND MULTIVITAMIN WITH VITAMIN C QD FOR WOUND HEALING 3. RECOMMEND ASSISTANCE WHEN EATING MEALS 4. RD TO FOLLOW-UP 3-5 DAYS, MODERATE RISK RIKKI HANKINS RD
[2018-09-09] MEDS ORDERED: ENALAPRILAT 2.5 MG/2 ML VIAL IVP PRN (15:00)
--- NOTE | 2018-09-09 16:25 | NUR ---
REPOSITIONED PT AND USED PILLOW TO OFF LOAD PRESSURE FROM THE BACK, SACRAL AREA, AND LEGS. PT TOLERATED WELL.
[2018-09-09] MEDS ORDERED: hydrALAZINE 20 MG/ML VIAL IVP PRN (18:00)
[2018-09-09] MEDS ORDERED: guaiFENesin/CODEINE 100/10MG 5 ML UDC PO PRN (18:15)
[2018-09-09] MEDS ORDERED: NIFEdipine 30 MG TABER PO SCH ×2 (18:15→22:30)
[2018-09-09 18:20] VITALS: BP 196/90
--- NOTE | 2018-09-09 18:20 | NUR ---
CHECKED BP PRIOR TO MEDICATION ADMINISTRATION; [id number], PULSE 88. ADMINISTERED MEDS PER MD ORDER. PT TOLERATED WELL.
--- NOTE | 2018-09-09 19:25 | NUR ---
ENDORSED PT AT BEDSIDE TO HAIR DRESSER NURSE FOR CONTINUITY OF CARE. PT IS IN STABLE CONDITION.
--- NOTE | 2018-09-09 19:26 | NUR ---
RECEIVED BEDSIDE REPORT FROM DAY SHIFT NURSE AKOSUA RN, PT STABLE, NO DISTRESS NOTED, IV TO L AC 20G PATENT, INTACT, PT HAS HER NASAL CANULA ABOVE HER NOSTRILS, AND IS STABLE ON ROOM AIR, NO SOB NOTED, CASTELLANOS CATH IN PLACE DRAINING YELLOW URINE, INITIAL ASSESSMENT DONE, ALL SAFETY PRECAUTION MET, CALL LIGHT WITHIN REACH, WILL CONTINUE TO MONITOR.
[2018-09-09 20:00] VITALS: BP 161/57
--- NOTE | 2018-09-09 20:00 | NUR ---
CHECKED PT BLOOD PRESSURE 161/57, BP IS TRENDING DOWN, WILL ADMINISTER DUE BP MEDICATION WHEN IT IS DUE, NOTIFIED DR. REGARDING BP, STATED UNDERSTANDING. WILL MONITOR PT BP.
[2018-09-09] MEDS: hydrALAZINE 25 MG TAB PO SCH (20:37)
[2018-09-09] MEDS: guaiFENesin 600 MG TABER PO SCH (20:37)
[2018-09-09] MEDS: DONEPEZIL 10 MG TAB PO SCH (20:37)
--- NOTE | 2018-09-09 20:43 | NUR ---
DUE MEDICATION ADMINISTERED, PT TOLERATED WELL, NO DISTRESS NOTED, CALL LIGHT WITHIN REACH, WILL CONTINUE TO MONITOR.
--- NOTE | 2018-09-09 23:45 | NUR ---
CHECKED ON PT, PT SLEEPING, NO DISTRESS NOTED, CALL LIGHT WITHIN REACH, WILL CONTINUE TO MONITOR. Addendum: 09/10/18 at 0159 by Rocio Valdivia RN V/S TAKEN WITHIN PT BASELINE
[2018-09-10] VITALS: BP 142/59
[2018-09-10] MEDS ORDERED: Z-GUARD PASTE TP PRN (01:00)
--- NOTE | 2018-09-10 01:10 | NUR ---
SKIN CARE ADMINISTERED, PT TOLERATED WELL, DRESSING CHANGED, CALL LIGHT WITHIN REACH, WILL CONTINUE TO MONITOR.
--- NOTE | 2018-09-10 01:59 | NUR ---
CHECKED ON PT, PT SLEEPING, NO DISTRESS NOTED, CALL LIGHT WITHIN REACH, WILL CONTINUE TO MONITOR.
[2018-09-10] MEDS: DEXTROSE 5% 1,000 ML IV SCH ×2 (03:36→17:35)
--- NOTE | 2018-09-10 03:45 | NUR ---
CHECKED ON PT, PT RESTING, NO DISTRESS NOTED, V/S TAKEN, PT SATURATION 90%, PUT PT ON O2 2LPM VIA NC, PT SATURATION NOW 96%, PT RESTING, NO DISTRESS NOTED, CALL LIGHT WITHIN REACH, WILL CONTINUE TO MONITOR.
[2018-09-10 04:00] VITALS: BP 109/55
--- NOTE | 2018-09-10 07:26 | NUR ---
ENDORSED PT TO DAY SHIFT NURSE NISREEN RN FOR CONTINUOUS OF CARE.
--- NOTE | 2018-09-10 07:27 | NUR ---
RECEIVED BEDSIDE REPORT FROM B OPERATOR NURSE. PATIENT IS AWAKE, ALERT AND ORIENTEDX3 AT THIS TIME. SHE HAS DEMENTIA AND TENDS TO NEED REORIENTATION FREQ. SHE IS BEDBOUND. FALL RISK PROTOCOL IN PLACE. 2 SKIN TEARS ON HER BACK, DRESSING IS CLEAN, DRY AND INTACT. L AC 20G INFUSING D5 AT 60. CLEAN,DRY AND INTACT. PATIENT IS INCONTINENT. CASTELLANOS IN PLACE. NO SIGNS OF DISTRESS ON 2L NC. PATIENT CONTINUES TO REMOVE NC. REORIENT PATIENT IN THE NEED OF NC. BED IN LOW POSITION. CALL LIGHT WITHIN REACH. WOUND BED IN PLACE.
[2018-09-10] MEDS: ALBUTEROL SULFATE/IPRATROPIU 3 ML SOL IH SCH ×3 (07:30→19:33)
[2018-09-10 07:55] LABS: BASOPHILS % (AUTO) 0.1 % (0.0-2.0); HEMATOCRIT 34.1 % (36-48); HEMOGLOBIN 10.9 g/dL (12.0-16.0); LYMPHOCYTES # (AUTO) 1.9 K/uL (2.5-16.5); LYMPHOCYTES % (AUTO) 13.7 % (20.5-51.1); MEAN CORPUSCULAR HEMOGLOBIN 28 pg (27-31); MEAN CORPUSCULAR HGB CONC 32 g/dL (33-37); MEAN CORPUSCULAR VOLUME 88.6 fL (80-94); MONOCYTES # (AUTO) 1.2 K/uL (0.8-1.0); MONOCYTES % (AUTO) 8.7 % (1.7-9.3); NEUTROPHILS # (AUTO) 10.5 K/uL (1.8-7.7); NEUTROPHILS % (AUTO) 77.5 % (42.2-75.2); PLATELET COUNT (AUTO) 253 K/uL (140-450); RED BLOOD CELL COUNT(AUTO) 3.85 MIL/uL (4.20-5.40); WHITE BLOOD COUNT (AUTO) 13.5 K/uL (4.8-10.8)
[2018-09-10 08:00] VITALS: BP 151/63
--- NOTE | 2018-09-10 08:00 | NUR ---
FED PATIENT. PATIENT ATE 25% OF HER FOOD AND 125 FLUIDS.
[2018-09-10 08:06] LABS: CARBON DIOXIDE 22.7 mmol/L (21-32); CHLORIDE 115 mmol/L (98-107); CREATININE 1.5 mg/dL (0.6-1.3); GLUCOSE 128 mg/dL (74-106); POTASSIUM 3.7 mmol/L (3.5-5.1); SODIUM SERUM 147 mmol/L (136-145); UREA NITROGEN, BLOOD 53 mg/dL (7-18)
[2018-09-10] MEDS ORDERED: hydrALAZINE 10 MG TAB PO SCH (09:00)
[2018-09-10] MEDS: hydrALAZINE 25 MG TAB PO SCH (09:51)
[2018-09-10] MEDS: SKINTEGRITY HYDROGEL TP SCH (09:52)
[2018-09-10] MEDS: methylPREDNISolone SS 40 MG/ML VIAL IVP SCH (09:52)
[2018-09-10] MEDS: guaiFENesin 600 MG TABER PO SCH ×2 (09:52→21:10)
[2018-09-10] MEDS: NIFEdipine 30 MG TABER PO SCH (09:52)
[2018-09-10] MEDS ORDERED: ASCORBIC ACID 500 MG TAB PO SCH (09:57)
[2018-09-10] MEDS ORDERED: MULTIVITAMIN 1 TAB PO SCH (09:58)
--- NOTE | 2018-09-10 10:00 | NUR ---
ADMINISTERED MEDS. PATIENT TOLERATED WELL. WILL CONTINUE TO MONITOR THE PATIENT.
--- NOTE | 2018-09-10 10:40 | NUR ---
Tow Driver Note: I met with patient's brothers Adryan Llanos and Richard Llanos to discuss patient's tentative discharge plan. They explained to me they were interested in assisted living placement for patient. I provided them with general information about assisted living facilities vs senior care facilities. It was determined by patient's brothers and myself patient will be more appropriate for a senior care facility. At this time it is unknown whether patient has health insurance coverage. Adryan and think patient might have Medicare coverage. They will attempt to have access to patient's home and look for health insurance information and provide me with information. I explained to them if plan is for patient to live in a senior care facility skilled nursing, patient will have to have [employer] coverage. They verbalized understanding. They told me they think patient's pcp is a female doctor by the last name Joe. I told them there is a local female physician by the name of Yahaira Gong. I explained to them I would contact office to ask office staff if this was one of Dr. Ta patients and obtain patient�s health insurance information on file. I provided them with my contact information. They told me they were planning to speak with regarding patient�s current medical condition. Line Fisher will continue to follow up as needed.
--- NOTE | 2018-09-10 10:45 | NUR ---
Hemodialysis Charge Nurse Note: I explained to patient's brothers Adryan and , they will need to have patient's bank statements and income information for [employer] application. They stated patient is aware her son Jcarlos Martinez , however, due to dementia she forgets about his .
[2018-09-10] MEDS: levETIRAcetam 500 MG in NACL 0.9% 100 ML IV SCH ×2 (11:22→21:10)
[2018-09-10] MEDS ORDERED: ASCORBIC ACID 500 MG TAB ONE (11:25)
[2018-09-10] MEDS ORDERED: MULTIVITAMIN 1 TAB PO ONE (11:26)
[2018-09-10 12:00] VITALS: BP 148/67
--- NOTE | 2018-09-10 12:08 | NUR ---
CLEANSED PATIENT. PATIENT HAD A BM. WILL CONTINUE TO MONITOR THE PATIENT
[2018-09-10 13:10] LABS: CKMB RELATIVE INDEX 0.5 (0.0-2.5); CREATINE KINASE MB 4.2 ng/mL (0-3.6)
--- NOTE | 2018-09-10 14:00 | NUR ---
FED PATIENT. PATIENT ATE ABOUT 25% OF FOOD AND DRANK 100 [id number]. PATIENT TOLERATED WELL. WILL CONTINUE TO MONITOR
--- NOTE | 2018-09-10 14:10 | NUR ---
Cell Liner Note: I called and spoke with Darlyn from 's office , asked her if patient was one of 's office. I provided Darlyn with patient's name and date, she was able to confirm is patient's pcp. I requested Darlyn to please fax patient�s health insurance information to me, provided her with fax number. I obtained insurance information from Darlyn via fax, I provided this information to Manager Distribution Maribel ext [phone]. Addendum: 09/10/18 at 1735 by Kaitlin DAVALOS Per Darlyn from 's office , patient's last appt with was 02/11/18.
--- NOTE | 2018-09-10 15:32 | NUR ---
PATIENT IN BED. NO SIGNS OF DISTRESS. WILL CONTINUE TO MONITOR THE PATIENT
[2018-09-10 16:00] VITALS: BP 140/57
--- NOTE | 2018-09-10 16:40 | NUR ---
PATIENT SITTING IN BED. NO SIGNS OF DISTRESS. TOLERATING RA WELL.
--- NOTE | 2018-09-10 18:43 | NUR ---
NEW IV ON L AC 18G. PATIENT REMOVED OTHER IV, TIP WAS INTACT
--- NOTE | 2018-09-10 19:11 | NUR ---
GAVE BEDSIDE REPORT TO CLOTH LAYER NURSE. PATIENT ENDORSED IN STABLE CONDITION
--- NOTE | 2018-09-10 19:12 | NUR ---
RECEIVED BEDSIDE REPORT FROM DAY SHIFT NURSE NISREEN RN, PT STABLE, NO DISTRESS NOTED, IV TO L AC 22G PATENT,INTACT, INFUSING D5 @ 60ML/HR, INFUSING WELL, PT ON ROOM AIR, NO SOB NOTED, STABLE, PO2 AT 95%, CASTELLANOS CATH IN PLACE DRAINING YELLOW URINE, INITIAL ASSESSMENT DONE, ALL SAFETY PRECAUTION MET, CALL LIGHT WITHIN REACH, WILL CONTINUE TO MONITOR.
[2018-09-10 20:00] VITALS: BP 127/50
[2018-09-10] MEDS: DONEPEZIL 10 MG TAB PO SCH (21:10)
--- NOTE | 2018-09-10 21:17 | NUR ---
DUE MEDICATION ADMINISTERED, PT TOLERATED WELL, NO DISTRESS NOTED, CALL LIGHT WITHIN REACH, WILL CONTINUE TO MONITOR.
--- NOTE | 2018-09-10 22:00 | NUR ---
PT PULLED OUT IV, NEW IV INSERTED L FA 22G PATENT, INTACT, IV TO R AC TAKEN OUT, CATH INTACT, PT RESTING, NO DISTRESS NOTED, CALL LIGHT WITHIN REACH.
--- NOTE | 2018-09-10 23:50 | NUR ---
CHECKED ON PT, PT SLEEPING, NO DISTRESS NOTED, V/S TAKEN, WNL, CALL LIGHT WITHIN REACH, WILL CONTINUE TO MONITOR.
[2018-09-11 00:05] VITALS: BP 123/53
--- NOTE | 2018-09-11 03:39 | NUR ---
CHECKED ON PT, PT SLEEPING, NO DISTRESS NOTED, V/S TAKEN, WNL, CALL LIGHT WITHIN REACH, WILL CONTINUE TO MONITOR.
[2018-09-11] MEDS: DEXTROSE 5% 1,000 ML IV SCH (03:51)
[2018-09-11 04:00] VITALS: BP 114/46
[2018-09-11] MEDS: ALBUTEROL SULFATE/IPRATROPIU 3 ML SOL IH SCH ×3 (06:33→19:00)
[2018-09-11 07:01] LABS: BASOPHILS % (AUTO) 0.2 % (0.0-2.0); EOSINOPHILS % (AUTO) 0.2 % (0.0-4.0); HEMATOCRIT 33.5 % (36-48); HEMOGLOBIN 10.8 g/dL (12.0-16.0); LYMPHOCYTES # (AUTO) 2.3 K/uL (2.5-16.5); LYMPHOCYTES % (AUTO) 17.4 % (20.5-51.1); MEAN CORPUSCULAR HEMOGLOBIN 28 pg (27-31); MEAN CORPUSCULAR HGB CONC 32 g/dL (33-37); MONOCYTES # (AUTO) 1.2 K/uL (0.8-1.0); MONOCYTES % (AUTO) 9.3 % (1.7-9.3); NEUTROPHILS # (AUTO) 9.5 K/uL (1.8-7.7); NEUTROPHILS % (AUTO) 72.9 % (42.2-75.2); PLATELET COUNT (AUTO) 249 K/uL (140-450); RED BLOOD CELL COUNT(AUTO) 3.85 MIL/uL (4.20-5.40); WHITE BLOOD COUNT (AUTO) 13.1 K/uL (4.8-10.8)
[2018-09-11 07:25] LABS: ANION GAP 10.6 (8-16); CARBON DIOXIDE 25.9 mmol/L (21-32); CHLORIDE 109 mmol/L (98-107); CREATININE 1.2 mg/dL (0.6-1.3); GLUCOSE 111 mg/dL (74-106); POTASSIUM 3.5 mmol/L (3.5-5.1); SODIUM SERUM 142 mmol/L (136-145); UREA NITROGEN, BLOOD 41 mg/dL (7-18)
--- NOTE | 2018-09-11 07:30 | NUR ---
RECEIVED BEDSIDE REPORT FROM ELECTRIC SOLDERER NURSE RN, PT IS AAOX1. NO DISTRESS NOTED ON ROOM AIR, IV TO L HAND 22G PATENT, INTACT, INFUSING D5 @ 60ML/HR, INFUSING WELL. CASTELLANOS CATH IN PLACE DRAINING YELLOW URINE, INITIAL ASSESSMENT DONE, ALL SAFETY PRECAUTION MET, CALL LIGHT WITHIN REACH, WILL CONTINUE TO MONITOR.
--- NOTE | 2018-09-11 07:30 | NUR ---
ENDORSED PT TO DAY SHIFT NURSE ROSALINA RN, PT STABLE, NO DISTRESS NOTED, CALL LIGHT WITHIN REACH.
[2018-09-11 08:00] VITALS: BP 124/56
--- NOTE | 2018-09-11 08:15 | NUR ---
FED PT WITH BREAKFAST. PT ATE 25 %. REFUSED TO EAT ANY MORE. STATED SHE FINISHED.
[2018-09-11] MEDS: methylPREDNISolone SS 40 MG/ML VIAL IVP SCH (08:55)
[2018-09-11] MEDS: NIFEdipine 30 MG TABER PO SCH (08:55)
[2018-09-11] MEDS: guaiFENesin 600 MG TABER PO SCH ×2 (08:56→20:43)
[2018-09-11] MEDS: SKINTEGRITY HYDROGEL TP SCH (08:56)
[2018-09-11] MEDS ORDERED: MULTIVITAMIN 1 TAB PO SCH (09:00)
[2018-09-11] MEDS ORDERED: ASCORBIC ACID 500 MG TAB PO SCH (09:00)
--- NOTE | 2018-09-11 10:33 | NUR ---
Clinicals sent to Rebekah from [facility] fax # phone number .
[2018-09-11] MEDS: levETIRAcetam 500 MG in NACL 0.9% 100 ML IV SCH ×2 (10:53→21:05)
--- NOTE | 2018-09-11 11:02 | NUR ---
Clinicals faxed to [facility] fax # phone # .
--- NOTE | 2018-09-11 11:11 | NUR ---
Clinicals faxed to [facility] fax # phone number .
[2018-09-11 12:00] VITALS: BP 153/81
--- NOTE | 2018-09-11 12:30 | NUR ---
PT IS CONFUSED. ASKING WHERE IS HIS SON, ASKING HER SON TO COME TO HER BED. REORIENTED PT. TOLD PT, SHE IS IN [facility], PT SAID OK.
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
[2018-09-11] MEDS ORDERED: VITC500 PO (14:27)
[2018-09-11] MEDS ORDERED: CEFT1SOL1 IV (14:27)
[2018-09-11] MEDS ORDERED: MULT-405 PO (14:27)
[2018-09-11] MEDS ORDERED: GUAI-791 PO (14:27)
[2018-09-11] MEDS ORDERED: DONE10TA10 PO (14:27)
[2018-09-11] MEDS ORDERED: KEP500 PO (14:27)
[2018-09-11] MEDS ORDERED: NIFE30TE98 PO (14:27)
--- NOTE | 2018-09-11 14:51 | NUR ---
Mercerizer Machine Operator Note: I called patient's brothers Adryan Llanos to inform him plan is to transfer patient to [facility] today and to let him know [facility] senior sales representative Lang from [facility] ext [phone] will assist him and his brother with completion of patient's [facility] application, no answer, left message. Addendum: 09/12/18 at 1034 by Kaitlin Kuhn SS I received a voicemail left by patient's brother Adryan yesterday afternoon, he stated he is aware patient will be transfer to [facility] on 09/11/18 and will inform his brother of this as well.
--- NOTE | 2018-09-11 14:55 | NUR ---
Transportation arranged with [place] pt to be picked up from room 112 A at 2000 and transported to [facility] .
--- NOTE | 2018-09-11 15:00 | NUR ---
[facility] phone # .
--- NOTE | 2018-09-11 15:03 | NUR ---
Spoke with Latrice from [facility] pt is going to room 9B.
--- NOTE | 2018-09-11 15:10 | NUR ---
Informed Kathleen CN pt will be picked up by [facility] at 1999 . Pt will be transported to [facility] to room 9B. Accepting MD is Dr. Pathak.
--- NOTE | 2018-09-11 15:15 | NUR ---
DRESSING CHANGED TO BACK AND Z GUARD APPLIED TO [facility]CR[facility] AREA.
[2018-09-11] MEDS ORDERED: LACT1CAP63 PO (15:26)
--- NOTE | 2018-09-11 15:45 | NUR ---
PT PULLED OUT HER IV CATH, TIP INTACT, NO BLEEDING NOTED. PT REMOVED HER GOWN, AND TRIED PULLING ON HER CASTELLANOS CATH TOO. TOLD PT TO STOP, REORIENTED PT. RESTARTED NEW IV ON LEFT HAND 22 G. PT TOLERATED WELL.
[2018-09-11 16:00] VITALS: BP 115/67
--- NOTE | 2018-09-11 16:10 | NUR ---
CALLED PT'S BROTHER VIKASH AND MADE HIM AWARE PT IS LEAVING THE HOSP TODAY, GOING TO [facility]. ALSO PUT HIM ON SPEAKER AND HE TALKED TO PT.
[2018-09-11] MEDS ORDERED: INFLUENZA VIRUS VACCINE QUAD 0.5 ML SYR IMVAC PRN (16:15)
[2018-09-11] MEDS ORDERED: PNEUMOCOCCAL VACCINE 23 MCG/0.5 ML VIAL IMVAC SCH (17:00)
--- NOTE | 2018-09-11 17:15 | NUR ---
CALLED [facility], REPORT GIVEN TO NURSE VUONG.
--- NOTE | 2018-09-11 19:30 | NUR ---
RECEIVED REPORT FROM ROSALINA RN DAYSHIFT NURSE AT BEDSIDE FOR CONTINUITY OF CARE, PT IN STABLE CONDITION.
--- NOTE | 2018-09-11 19:30 | NUR ---
ENDORSED PT TO NEONATAL ICU COORDINATOR RN. PT IN STABLE CONDITION.
[2018-09-11 20:00] VITALS: BP 146/69
--- NOTE | 2018-09-11 20:00 | NUR ---
PT IN BED NO S/S OF PAIN OR DISTRESS NOTED. ALL FALLS PRECAUTIONS IN PLACE AND CALL DIAL IN REACH. PT GIVEN KEPPRA IV, COLACE AND ARICEPT ORDERED. V/S FOLLOWS T 98.2 P 84 R 18 B/P 146/69 02 96% ON ROOM AIR. IV SITE ON LEFT HAND 22GUAGE INTACT AND FLUSHED PATENT.
--- NOTE | 2018-09-11 20:41 | NUR ---
1929 PATIENT REFUSED HHNTX. ENCOURAGED HER TO TAKE IT BUT SHE REFUSED
[2018-09-11] MEDS: DONEPEZIL 10 MG TAB PO SCH (20:43)
--- NOTE | 2018-09-11 23:00 | NUR ---
[facility] HERE. CASTELLANOS CATHETER D/C'D. PT RE-ORIENTED AND WILLING TO GO TO [facility]. PT TRANSFERRED TO [facility] BY STAFF. NO S/S OF PAIN OR DISTRESS NOTED.
== END 2018-09-11 23:07 | DRG 871 ==
LOC: MED 17:55 → EDBD 17:55 → MTU 20:48
PROVIDERS: ADMIT General Practice; ATTEND General Practice
PROC: 3E02340 Introduction of Influenza Vaccine into Muscle, Percutaneous Approach (ICD-10-PCS; principal; 2018-09-11)
PROC: 3E0234Z Introduction of Serum, Toxoid and Vaccine into Muscle, Percutaneous Approach (ICD-10-PCS; 2018-09-11)
PROC: 4A00X4Z Measurement of Central Nervous Electrical Activity, External Approach (ICD-10-PCS; 2018-09-11)
DX: A41.9 Sepsis, unspecified organism (principal); N17.0 Acute kidney failure with tubular necrosis; J96.01 Acute respiratory failure with hypoxia; I50.43 Acute on chronic combined systolic (congestive) and diastolic (congestive) heart failure; G92 Toxic encephalopathy; N39.0 Urinary tract infection, site not specified; J45.901 Unspecified asthma with (acute) exacerbation; J44.1 Chronic obstructive pulmonary disease with (acute) exacerbation; T83.83XA Hemorrhage due to genitourinary prosthetic devices, implants and grafts, initial encounter; I11.0 Hypertensive heart disease with heart failure; I70.0 Atherosclerosis of aorta; L89.309 Pressure ulcer of unspecified buttock, unspecified stage; E83.39 Other disorders of phosphorus metabolism; E83.41 Hypermagnesemia; E66.9 Obesity, unspecified; Z68.31 Body mass index [BMI] 31.0-31.9, adult; E83.51 Hypocalcemia; G30.9 Alzheimer's disease, unspecified; F02.80 Dementia in other diseases classified elsewhere, unspecified severity, without behavioral disturbance, psychotic disturbance, mood disturbance, and anxiety; D64.9 Anemia, unspecified; J98.8 Other specified respiratory disorders; Z23 Encounter for immunization; R56.9 Unspecified convulsions
CPT/HCPCS: 36415; 36600; 70450; 71045; 76705; 80048; 80053; 80305; 81001; 82140; 82150; 82306; 82330; 82550; 82553; 82728; 82803; 83036; 83540; 83605; 83690; 83735; 83880; 84100; 84443; 84484; 85025; 85610; 85730; 87040; 87081; 87086; 87186; 90732; 92610; 93005; 93970; 94640; 95816; 96361; 96365; 97530; 99285; A6248; C1758; J0360; J0696; J1644; J1940; J1953; J1956; J2543; J2920; J2930; J3490; J7042; J7060; J7620; Q0092